=== PATIENT | male | born 1960 | race Caucasian/White ===

== ENCOUNTER 2023-01-26 21:16 | Emergency (ER) | payer OTHER | END 2023-01-26 23:51 | disposition home or self-care (01) | LOC: NAV ERS 21:16 | DX: S01.111A Laceration without foreign body of right eyelid and periocular area, initial encounter (principal); E03.9 Hypothyroidism, unspecified; Y04.2XXA Assault by strike against or bumped into by another person, initial encounter; Z79.899 Other long term (current) drug therapy | CPT/HCPCS: 70486; 72125 ==